=== PATIENT | female | born 1980 | race Caucasian/White ===

== ENCOUNTER 2018-02-17 13:12 | Emergency (ER) | payer OTHER, BC ==
[~2018-02-17] VITALS: Ht 165.1 cm; Wt 78.9 kg
[~2018-02-17 13:12] MED LIST: CYCLOBENZAPRINE10 MG PO; HYDROCODON-ACE1 EAC8 PO; IBUPROFEN600 MG PO; IBUPROFEN800 MG PO; IMITREX25 MG PO; NORCO 5-325 TA1 EACH PO; PREDNISONE20 MG PO; SOMA350 MG PO
[2018-02-17] MEDS ORDERED: CYCLOBENZAPRINE5 MG PO (13:33)
[2018-02-17] MEDS ORDERED: GABAPENTIN300 MG PO (13:33)
[2018-02-17] MEDS ORDERED: NORCO 5-325 TA1 EACH PO (14:33)
== END 2018-02-17 14:43 | disposition home or self-care (01) ==
LOC: ED 13:12
DX: S83.92XA Sprain of unspecified site of left knee, initial encounter (principal); W17.89XA Other fall from one level to another, initial encounter; G43.909 Migraine, unspecified, not intractable, without status migrainosus; Z87.891 Personal history of nicotine dependence; Z88.2 Allergy status to sulfonamides; Z79.899 Other long term (current) drug therapy
CPT/HCPCS: 29505; 73560; 99283

== ENCOUNTER 2019-10-25 19:03 | Emergency (ER) | payer OTHER ==
[~2019-10-25] VITALS: Ht 165.1 cm; Wt 94.8 kg
[~2019-10-25 19:03] MED LIST changes: +CYCLOBENZAPRINE5 MG PO; +GABAPENTIN300 MG PO
[2019-10-25] MEDS ORDERED: NORCO 5-325 TA1 EACH PO (19:16)
== END 2019-10-25 20:00 | disposition home or self-care (01) ==
LOC: ED 19:03
DX: T22.112A Burn of first degree of left forearm, initial encounter (principal); G43.909 Migraine, unspecified, not intractable, without status migrainosus; Z87.891 Personal history of nicotine dependence; Z88.2 Allergy status to sulfonamides; Z79.899 Other long term (current) drug therapy
CPT/HCPCS: 96372; 99283; J1170